=== PATIENT | male | born 1985 | race Caucasian/White ===

== ENCOUNTER 2025-04-29 11:18 | Emergency (ER) | payer OTHER, SELFPAY ==
--- OUTSIDE RECORDS SUMMARY | 2025-04-28 04:40 | XMS_ITS ---
Author Organization [facility] Address [address] [place] [address] Care Team Providers Care Bander Operator Name Role Phone Rodriguez Shepherd Primary Care Provider [phone] Russell Dodson Unavailable [phone] Allergies Allergen (clinical drug ingredient) Drug/Non Drug Allergy documented on EMR Reaction Allergy Type Onset Date Status bees (uncoded) hives Allergy Activ e wasp (uncoded) hives Allergy Activ e REASON FOR VISIT MRU Medications Medication SIG (Take, Route, Frequency, Duration) Notes Start Date End Date Status Nicotine Polacrilex 4 MG 1 lozenge as needed for nicotine cravings Mouth/Throat Up to once per hour (maximum of 15 lozenges per day); Duration: 7 days 04/28/2025 Active hydrOXYzine Pamoate 25 MG 1-2 capsules Orally every 4 hours as needed for anxiety, agitation, or inability to sleep. Do not give within 4 hours of diphenhydramine.; Duration: 30 days 04/28/2025 Active Nicotine 21 MG/24HR 1 patch to skin. Transdermal Once a day, removing at bedtime; Duration: 28 days 04/28/2025 Active Melatonin 5 MG 1 tablet at bedtime as needed Orally Once a day; Duration: 30 days 04/28/2025 Active Multi Vitamin - 1 tablet Orally Once a day; Duration: 30 days 04/28/2025 Active Lantus 100 UNIT/ML 15 units Subcutaneou s every 12 hours 15 units every12 hours Active HumaLOG KwikPen 200 UNIT/ML 10 units with every meal Subcutaneous 10 units with every meal Active Social History Tobacco Use: Social History Observation Description Date Details (start date - stop date) Current Smoker NA - NA Sex Assigned At : Social History Observation Description Sex Assigned At Male Tobacco Control (Standard) Question Answer Notes Tobacco use: Current smoker How often do you smoke cigarettes? Every day How many cigarettes a day do you smoke? 21-30 Problems Problem Type SNOMED Code ICD Code Onset Dates Problem Status W/U Status Risk Notes Problem Physical examination, complete (89423559) Adult general medical examination (Z00.00) Active confirmed Problem Overweight (130597891) Over weight (E66.3) Active confirmed Problem Type 2 diabetes mellitus (93852338) Type 2 diabetes mellitus (E11.9) Active confirmed Vital Signs Weight 299.4 lbs 04/28/2025 Height 74 in 04/28/2025 BMI 38.44 kg/m2 04/28/2025 Blood pressure systolic 128 mm Hg 04/28/20 25 Blood pressure diastolic 74 mm Hg 025 Heart Rate 80 /min 04/28/2025 Oximetry 98 % 04/28/2025 Temperature 98.0 degrees Fahrenheit 04/28/20 25 Respiratory Rate 20 /min 04/28/2025 Encounters Encounter Location Date Provider Diagnosis [place] [address] [place] [address] 04/28/2025 Russell Dodson Adult general medical examination Z00.00 ; Over weight E66.3 and Type 2 diabetes mellitus E11.9 Assessments Encounter Date Diagnosis (ICD Code) Assessment Notes Treatment Notes Treatment Clinical Notes Section Notes 04/28/2025 Adult general medical examination (ICD-10 - Z00.00) Admit to the [facility] and initiate standing/protocol orders: The following PRN medications may be self-administered by patients under the supervision of approved staff or administered by nursing staff: Ibuprofen 200mg, 2-4 tablets by mouth (with food) every 6 hours as needed for pain (unless on lithium). (NOTE: Ibuprofen and acetaminophen may be given together, but alternating is recommended for continuous pain relief. Guaifenesin 400 mg, 1 tablet by mouth every four hours as needed for cough and chest congestion (take with large glass of water). Loratadine 10 mg, 1 tablet by mouth daily as needed for allergies, watery itchy eyes, or sinus drainage. Throat Lozenges, up to 4 tablets by mouth every three to four hours as needed for sore throat. Antacid tablets, 1-2 tablets by mouth every one to two hours as needed for indigestion or heart burn. If the client prefers liquid, could use: Liquid Antacid : 1 ounce by mouth up to four times daily as needed for indigestion or heartburn Omeprazole 20mg, 1 capsule by mouth once daily for 14 days for frequent heartburn (frequent heartburn is more than 2 episodes per week). Do not exceed 14 days. Do not give to client already taking a proton-pump inhibitor: esomeprazole (Nexium), lansoprazole (Prevacid), pantoprazole (Protonix), rabeprazole (Aciphex), dexlansoprazole (Dexilant) Zofran ODT disintegrating (under the tongue) 4 mg, 1-2 tablets every 8 hours as needed for nausea/vomiting. Milk of Magnesia (MOM): 1 ounce (30 milliliters) by mouth every day as needed for constipation. OR Miralax: Stir and fully dissolve 17 grams (1 packet or 1 capful to measured line) in any 4 to 8 ounces of beverage then drink once daily for constipation. Do not use for more than 7 days. OR Docusate 100 mg, 1 capsule twice daily as needed for constipation Hydrocortisone 1% Cream, apply topically (to the skin) to the affected area up to three times daily as needed for itching or inflammation (avoid eyes and genitals). 2% Antifungal Cream, apply topically (to the skin) as directed as needed to affected areas for athlete's foot or jock itch. Triple Antibiotic Ointment, apply topically (to the skin) up to three times daily as needed for minor cuts and scrapes. Carmex or Chapstick, apply topically (to the skin) as needed for chapped lips and skin. Orajel, apply to affected areas as needed for mouth or tooth pain. Lubricating Eye Drops, instill 1-2 drops to the affected eye(s) as needed for dry/irritated eye(s). Hemorrhoid medications, apply to affected area according to directions as needed for hemorrhoid discomfort and itch. Nix (Permethrin 1%) cream 2 ounces, apply topically (to the skin) as directed as needed for head lice. Sunscreen 30 SPF, Apply to exposed skin prior to exposure to sun. The following PRN medications must be approved by nursing staff before self-administration by patients: Diphenhydramine 25 mg, 2 tablets by mouth every 4 hours as needed for allergic reaction or itchy rash. Caution: Do not use hydroxyzine within 4 hours of diphenhydramine and vice versa. Loperamide 2 mg capsules, may give two capsules by mouth for the initial dose, followed by one capsule up to 3 times a day as needed for diarrhea. Acetaminophen 500 mg, 1 - 2 tablets by mouth every six hours as needed for pain. (NOTE: Ibuprofen and acetaminophen may be given together, but alternating is recommended for continuous pain relief). Oxygen-May administer oxygen 2L/min via nasal cannula if O2 saturation is less than 92%, AND client complains of shortness of breath. Target O2 saturation is 94-98%. Caution: Remember too much oxygen can be detrimental to a client with COPD. Oxygen is a drug and should be delivered by trained staff only. Nurses may remove superficial splinters and sutures from skin lacerations. May apply gauze or bandages to any weeping wounds. Contact nursing if there is pus, a foul odor, increased pain/redness/swelli ng, or if soaking through bandages. 04/28/2025 Over weight (ICD-10 - E66.3) 04/28/2025 Type 2 diabetes mellitus (ICD-10 - E11.9) Educated patient to check BS once to twice daily. 04/28/2025 Other Continue treatment as recommended by [facility] staff. Encouraged patient to obtain routine medical care with patient's own primary care provider or establish as a patient at [facility] if no current primary care provider. Plan Of Treatment Medication Medication Name Sig Start Date Stop Date Notes Nicotine Polacrilex 4 MG 1 lozenge as needed for nicotine cravings Mouth/Throat Up to once per hour (maximum of 15 lozenges per day); Duration: 7 days 04/28/2025 hydrOXYzine Pamoate 25 MG 1-2 capsules Orally every 4 hours as needed for anxiety, agitation, or inability to sleep. Do not give within 4 hours of diphenhydramine.; Duration: 30 days 04/28/2025 Nicotine 21 MG/24HR 1 patch to skin. Transdermal Once a day, removing at bedtime; Duration: 28 days 04/28/2025 Melatonin 5 MG 1 tablet at bedtime as needed Orally Once a day; Duration: 30 days 04/28/2025 Multi Vitamin - 1 tablet Orally Once a day; Duration: 30 days 04/28/2025 Lantus 100 UNIT/ML 15 units Subcutaneou s every 12 hours 15 units every12 hours HumaLOG KwikPen 200 UNIT/ML 10 units with every meal Subcutaneous 10 units with every meal Treatment Notes Assessment Notes Adult general medical examination Admit to the [facility] and initiate standing/protocol orders: The following PRN medications may be self-administered by patients under the supervision of approved staff or administered by nursing staff: Ibuprofen 200mg, 2-4 tablets by mouth (with food) every 6 hours as needed for pain (unless on lithium). (NOTE: Ibuprofen and acetaminophen may be given together, but alternating is recommended for continuous pain relief. Guaifenesin 400 mg, 1 tablet by mouth every four hours as needed for cough and chest congestion (take with large glass of water). Loratadine 10 mg, 1 tablet by mouth daily as needed for allergies, watery itchy eyes, or sinus drainage. Throat Lozenges, up to 4 tablets by mouth every three to four hours as needed for sore throat. Antacid tablets, 1-2 tablets by mouth every one to two hours as needed for indigestion or heart burn. If the client prefers liquid, could use: Liquid Antacid : 1 ounce by mouth up to four times daily as needed for indigestion or heartburn Omeprazole 20mg, 1 capsule by mouth once daily for 14 days for frequent heartburn (frequent heartburn is more than 2 episodes per week). Do not exceed 14 days. Do not give to client already taking a proton-pump inhibitor: esomeprazole (Nexium), lansoprazole (Prevacid), pantoprazole (Protonix), rabeprazole (Aciphex), dexlansoprazole (Dexilant) Zofran ODT disintegrating (under the tongue) 4 mg, 1-2 tablets every 8 hours as needed for nausea/vomiting. Milk of Magnesia (MOM): 1 ounce (30 milliliters) by mouth every day as needed for constipation. OR Miralax: Stir and fully dissolve 17 grams (1 packet or 1 capful to measured line) in any 4 to 8 ounces of beverage then drink once daily for constipation. Do not use for more than 7 days. OR Docusate 100 mg, 1 capsule twice daily as needed for constipation Hydrocortisone 1% Cream, apply topically (to the skin) to the affected area up to three times daily as needed for itching or inflammation (avoid eyes and genitals). 2% Antifungal Cream, apply topically (to the skin) as directed as needed to affected areas for athlete's foot or jock itch. Triple Antibiotic Ointment, apply topically (to the skin) up to three times daily as needed for minor cuts and scrapes. Carmex or Chapstick, apply topically (to the skin) as needed for chapped lips and skin. Orajel, apply to affected areas as needed for mouth or tooth pain. Lubricating Eye Drops, instill 1-2 drops to the affected eye(s) as needed for dry/irritated eye(s). Hemorrhoid medications, apply to affected area according to directions as needed for hemorrhoid discomfort and itch. Nix (Permethrin 1%) cream 2 ounces, apply topically (to the skin) as directed as needed for head lice. Sunscreen 30 SPF, Apply to exposed skin prior to exposure to sun. The following PRN medications must be approved by nursing staff before self-administration by patients: Diphenhydramine 25 mg, 2 tablets by mouth every 4 hours as needed for allergic reaction or itchy rash. Caution: Do not use hydroxyzine within 4 hours of diphenhydramine and vice versa. Loperamide 2 mg capsules, may give two capsules by mouth for the initial dose, followed by one capsule up to 3 times a day as needed for diarrhea. Acetaminophen 500 mg, 1 - 2 tablets by mouth every six hours as needed for pain. (NOTE: Ibuprofen and acetaminophen may be given together, but alternating is recommended for continuous pain relief). Oxygen-May administer oxygen 2L/min via nasal cannula if O2 saturation is less than 92%, AND client complains of shortness of breath. Target O2 saturation is 94-98%. Caution: Remember too much oxygen can be detrimental to a client with COPD. Oxygen is a drug and should be delivered by trained staff only. Nurses may remove superficial splinters and sutures from skin lacerations. May apply gauze or bandages to any weeping wounds. Contact nursing if there is pus, a foul odor, increased pain/redness/swelling, or if soaking through bandages. Type 2 diabetes mellitus Educated patien t to check BS once to twice daily. Other Continue treatment as recommended by [facility] staff. Encouraged patient to obtain routine medical care with patient's own primary care provider or establish as a patient at [facility] if no current primary care provider. Pending Test Test Name Order Date CBC With Differential/Platelet* 04/28/20 CMP 14 Comprehensive Metabolic Panel* QuantiFERON-TB Gold Plus ([id number]) 2024 Next Appt Details Follow Up: prn, Reason: Provider Name:Rodriguez talley, 04/30/2025 09:00:00 AM, [address], [place], [address], Provider Name:Russell caraballo, 05/03/2025 11:00:00 AM, [address], [place], [address], Provider Name:Kristan Mireles, 1 02:40:00 PM, [address] [place] [address], [id number], Progress Notes * Byrce GARCIADOB:1985 ( 39 yo M)Acc No.[id number]:04/28/2025 UNLOCKED PROGRESS NOTE Patient: Bryce GODWIN Provider: Shawn Dodson APN :1985 A ge:39 Y S ex:Male Date:04/28/2025 Address:[place] [address] Pcp:Rodriguez Shepherd Check In:08:[address] Subjective: * Chief Complaints: * 1 . MRU. * HPI: I nterim History: Emergency room visit N o. W as hospitalized N o.? D epression Screening: PHQ-9 L ittle interest or pleasure in doing things N ot at all, F eeling down, depressed, or hopeless N ot at all, T rouble falling or staying asleep, or sleeping too much N ot at all, F eeling tired or having little energy S everal days, P oor appetite or overeating N ot at all, F eeling bad about yourself or that you are a failure, or have let yourself or your family down N ot at all, T rouble concentrating on things, such as reading the newspaper or watching television N ot at all, M oving or speaking so slowly that other people could have noticed; or the opposite, being so fidgety or restless that you have been moving around a lot more than usual N ot at all, T houghts that you would be better off or of hurting yourself in some way N ot at all, T otal Score 1 , Interpretation M inimal Depression. I ntervention D epression Screening Findings P ositive, F ollow-Up for Depression P tk is admitted to a [facility] residential unit where their mental health is monitored - unit nursing staff have access to this encounter note. S creening: [place] Suicide Severity Rating Scale (LF) D o you want to initiate with S creener form, 1 . Wish to be : Have you wished you were or wished you could go to sleep and not wake up? N o, 2 . Suicidal Thoughts: Have you actually had any thoughts of killing yourself? N o, 6 . Suicide Behavior Question: Have you ever done anything,started to do anything, or prepared to end your life? N o, I nterpretation: L ow Risk. S ummary: Presents for physical as patient is admitted to Residential Unit at [facility]. Patient presents from: homeless, originally living in [place] Concerns of: Meth use Chronic Conditions: DM, epilipsy (due to drinking ETOH) (last seizure over a year ago, his PCP at the time dced seizure meds due to them occurring while drinking) Recent Hospitalizations: [facility] last month due to elevated blood sugars PCP: denies Psych provider: denies Drug/ETOH use: ETOH (former, has not drank in over a year), Meth (1g/daily) Last time used: 2 days ago Route: smoke Previous Tx: denies Withdrawal s/s: tired Cigarette/vaping use: 1 pack/day Sexual activity: denies Denies SI/HI. P [facility] follow-up: Action Plans for Clinical Quality Measures: A dult BMI and follow-up: O ther (see notes). provider to discuss with patient, H IV Screening: D iscussed need for HIV screening. Patient declined. patient does not want screening done, T obacco Screening and Cessation: O ther (see notes). provider to educate patient. . C SSRS Interpretation and Follow Up Plan: CSSRS Interpretation and Follow Up Plan C SSRS Screen documented using SF Y es, R isk Disposition from SF L ow - No Follow Up Plan Required, F ollow Up Plan N o Follow Up Plan required at this time., T imeframe of Screening T samanta.? * ROS: B asic ROS: Denies S eizures. D enies S uicidal Thoughts. ? P sych ROS: Constitutional D enies. E yes D enies. E ars/Nose/Mouth/Throat D enies. R espiratory D enies. C ardiovascular D enies. G I?Denies. G U D enies. M usculoskeletal D enies. N eurological D enies. Integumentary D enies. H ematological/Lymphatic D enies. * Medical History: D iabetic, Epilepsy. * Hospitalization/Major Diagno stic Procedure: [facility] for high blood sugar 03/2025. * Family History: F ather: unknown. M other: alive. 1 sister(s) - healthy. . mother is in ICU septic from kidney failure. * Social History: P rimary Social History: L iving Arrangement L iving Arrangement: H omeless, I s this a supportive environment? N o. A lcohol Use A lcohol Use Frequency: N ever. I llicit Substance Usage Illicit Substance Usage: Y es, S ubstance Used: M ethamphetamine, F requency Methamphetamine is used: daily, I nterested in quitting: Y es. E mployment Status?Employment Status: U nemployed. S kevin Question Alcohol Screening H ow many times in the past year have you had (4 for women, or 5 for men) or more drinks in a day? 0 . T obacco Use: T obacco Control (Standard) T obacco use: C urrent smoker, H ow often do you smoke cigarettes? E very day, H ow many cigarettes a day do you smoke? 2 1-30. M iscellaneous: M ethod of learning P referred method of learning: R eading,Hearing. * Medications: T aking HumaLOG KwikPen 200 UNIT/ML Solution Pen-injector as directed Subcutaneous , Notes to Pharmacist: 10 units with every meal, Taking Lantus 100 UNIT/ML Solution as directed Subcutaneous , Notes to Pharmacist: 15 units every12 hours, Medication List reviewed and reconciled with the patient * Allergies: B ees: Hives, Wasp: Hives. Objective: * Vitals: I nitials: HM, Wt:299.4, Ht: 74, BMI:38.44, BP:128/74, HR:80, Oxygen sat %:98, Temp:98.0, RR:20, Pain scale:2. * Examination: G eneral Examination: GENERAL APPEARANCE: a lert, in no acute distress. HEAD: n ormocephalic, atraumatic. EYES: B OTH EYES, sclera anicteric, pupils equal, round, reactive to light and accommodation , extraocular movement intact (EOMI). EARS B OTH EARS, normal. NOSE: n yashira patent. ORAL CAVITY: m ucosa moist, missing teeth, carious teeth.? THROAT: p harynx normal. NECK/THYROID: n jefferson supple , no thyromegaly. SKIN: w arm and dry, no rashes, no suspicious lesions, bug bites noted on upper and lower extremities. HEART: r egular rate and rhythm, S1, S2 normal, no S3, S4, no murmurs, rubs, gallops. LUNGS: r espirations regular and easy, clear to auscultation bilaterally, no wheezes, rales, rhonchi, clear anteriorly and posteriorly, good air movement. ABDOMEN: b owel sounds present, soft, nontender, nondistended, no masses palpable, no organomegaly . EXTREMITIES: n o edema. PERIPHERAL PULSES: 2 + throughout. NEUROLOGIC: n onfocal, gait normal. PSYCH: a ppropriate affect. Assessment: * Assessment: 1. A dult general medical examination - Z00.00 (Primary) 2 . T ype 2 diabetes mellitus - E11.9 3 . O julian weight - E66.3 Plan: * Treatment: Value Reference Range B AC 0.000 ?LAB: Hemoglobin A1c CLIA Waived (Ordered for 04/28/2025) (Collection Date & Time - 04/28/2025 10:44 AM)* Value Reference Range H emoglobin A1c 12.6 4.0 - 6.4 % ?LAB: 14 Panel Urine Drug Screen (Ordered for 04/28/2025) (Collection Date & Time - 04/28/2025)* Value Reference Range T HC neg * C OC neg * M OP (OPI) n eg * A MP pos * M ET pos * B AR neg * B ZO neg * M DMA neg * M TD neg * O XY neg * P CP neg * B UP neg * T CA neg * F TY neg Notes: Admit to the [facility] Residential Unit and initiate standing/protocol orders: The following PRN medications may be self-administered by patients under the supervision of approved staff or administered by nursing staff: * Ibuprofen 200mg, 2-4 tablets by mouth (with food) every 6 hours as needed for pain (unless on lithium). (NOTE: Ibuprofen and acetaminophen may be given together, but alternating is recommended for continuous pain relief. * Guaifenesin 400 mg, 1 tablet by mouth every four hours as needed for cough and chest congestion (take with large glass of water). * Loratadine 10 mg, 1 tablet by mouth daily as needed for allergies, watery itchy eyes, or sinus drainage. * Throat Lozenges, up to 4 tablets by mouth every three to four hours as needed for sore throat. * Antacid tablets, 1-2 tablets by mouth every one to two hours as needed for indigestion or heart burn. If the client prefers liquid, could use: Liquid Antacid : 1 ounce by mouth up to four times dailyas needed for indigestion or heartburn * Omeprazole 20mg, 1 capsule by mouth once daily for 14 days for frequent heartburn (frequent heartburn is more than 2 episodes per week). Do not exceed 14 days. Do not give to client already taking a proton-pump inhibitor: esomeprazole (Nexium), lansoprazole (Prevacid), pantoprazole (Protonix), rabep razole (Aciphex), dexlansoprazole (Dexilant) * Zofran ODT disintegrating (under the tongue) 4 mg, 1-2 tablets every 8 hours as needed for nausea/vomiting. * Milk of Magnesia (MOM): 1 ounce (30 milliliters) by mouth every day as needed for constipation.ORMiralax: Stir and fully dissolve 17 grams (1 packet or 1 capful to measured line) in any 4 to 8 ounces of beverage then drink once daily for constipation. Do not use for more than 7 days.ORDocusate 100 mg, 1 capsule twice daily as needed for constipation * Hydrocortisone 1% Cream, apply topically (to the skin) to the affected area up to three times dailyas needed for itching or inflammation (avoid eyes and genitals). * 2% Antifungal Cream, apply topically (to the skin) as directed as needed to affected areas for athlete's foot or jock itch. * Triple Antibiotic Ointment, apply topically (to the skin) up to three times daily as needed for minor cuts and scrapes. * Carmex or Chapstick, apply topically (to the skin) as needed for chapped lips and skin. * Orajel, apply to affected areas as needed for mouth or tooth pain. * Lubricating Eye Drops, instill 1-2 drops to the affected eye(s) as needed for dry/irritated eye(s). * Hemorrhoid medications, apply to affected area according to directions as needed for hemorrhoid discomfort and itch. * Nix (Permethrin 1%) cream 2 ounces, apply topically (to the skin) as directed as needed for head lice. * Sunscreen 30 SPF, Apply to exposed skin prior to exposure to sun. The following PRN medications must be approved by nursing staff before self- administration by patients: * Diphenhydramine 25 mg, 2 tablets by mouth every 4 hours as needed for allergic reaction or itchy rash.Caution: Do not use hydroxyzine within 4 hours of diphenhydramine and vice versa. * Loperamide 2 mg capsules, may give two capsules by mouth for the initial dose, followed by one capsule up to 3 times a day as needed for diarrhea. * Acetaminophen 500 mg, 1 - 2 tablets by mouth every six hours as needed for pain. (NOTE: Ibuprofen and acetaminophen may be given together, but alternating is recommended for continuous pain relief). * Oxygen-May administer oxygen 2L/min via nasal cannula if O2 saturation is less than 92%, AND clientcomplains of shortness of breath. Target O2 saturation is 94-98%.Caution: Remember too much oxygen can be detrimental to a client with COPD. Oxygen is a drug and should be delivered by trained staff only. Nurses may remove superficial splinters and sutures from skin lacerations. May apply gauze or bandages to any weeping wounds. Contact nursing if there is pus, a foul odor, increased pain/redness/swelling, or if soaking through bandages. ??2.?Type 2 diabetes mellitus? Continue HumaLOG KwikPen Solution Pen-injector, 200 UNIT/ML, 10 units with every meal, Subcutaneous, Notes to Pharmacist: 10 units with every meal;?Continue Lantus Solution, 100 UNIT/ML, 15 units, Subcutaneous, every 12 hours, Notes to Pharmacist: 15 units every12 hours.?? Notes: Educated patient to check BS once to twice daily.??3.?Others? Notes:Continue treatment as recommended by [facility] staff.Encouraged patient to obtain routine medical care with patient's own primary care provider or establish as a patient at [facility] if no current primary care provider.?? * Recommended Wellness and Pre vention Guidelines: * S tat A eliel L ast Done N ext Due A ction Taken N ONCOMPLIANT A lcohol use screening - 1 - - N ONCOMPLIANT A llergy List Verification - 1 - - N ONCOMPLIANT B michelle Mass Index - 1 - - N ONCOMPLIANT C holesterol screen (genl pop) - 1 - - N ONCOMPLIANT H IV screening - 1 - - N ONCOMPLIANT S moking status - 1 - - * Procedure Codes: 3 008F BODY MASS INDEX DOCD, 54548 TB TEST, CELL IMMUN MEASURE * Preventive Medicine: Counseling: S MOKING: P atient counselled on the dangers of tobacco use and urged to quit. 1 .. C are goal follow-up plan: B AR management provided Y es,?Above Normal BMI Follow-up L titoyle education regarding diet. * Follow Up: p rn * * Electronic signature of Villa Dodson on 04/29/2025 at 12:03 PM CDT Sign off status: Pending * Provider: Shawn Dodson, PHARMACY CUSTOMER CARE SPECIALIST Date: 1 Generated for Darren evans/Jaspreet/Sonja on: 1 12:03 PM CDT History and Physical Notes * HPI (History of Present Illness) Category Sub-Category Detail Notes Category Not es Interim History Was hospitalized No Emergency room visit No Depression Screening PHQ-9 Little inte rest or pleasure in doing things: Not at all Feeling down, depressed, or hopeless: No t at all Trouble falling or staying asleep, or sl eeping too much: Not at all Feeling tired or having little energy: S everal days Poor appetite or overeating: Not at all Feeling bad about yourself o r that you are a failure, or have let yourself or your family down: Not at all Trouble concentrating on thi ngs, such as reading the newspaper or watching television: Not at all Moving or speaking so slowly that other people could have noticed; or the opposite, being so fidgety or restless that you have been moving around a lot more than usual: Not at all Thoughts that you would be b anali off or of hurting yourself in some way: Not at all Total Score: 1 Interpretation: Minimal Depression Intervention Depression Screening Findings: P ositive Follow-Up for Depression: Troy verdugo is admitted to a [place] residential unit where their mental health is monitored - unit nursing staff have access to this encounter note Summary Presents for physical as patient is admitted to Residential Unit at [place]. 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 Wish to be : Have you wished you were or wished you could go to sleep and not wake up?: No 2. Suicidal Thoughts: Have you actually had any thoughts of killing yourself?: No 6. Suicide Behavior Question: Have you ever done anything,started to do anything, or prepared to end your life?: No Interpretation:: Low Risk Preventative Health and Wellness follow-up Action Plans for Clinical Quality Measures: Adult BMI and follow-up:: Other (see notes). provider to discuss with patient . HIV Screening:: Discussed ne ed for HIV screening. Patient declined. patient does not want screening done Tobacco Screening and Cessat ion:: Other (see notes). provider to educate patient CSSRS Interpretation and Follow Up Plan CSSRS Interpretation and Follow Up Plan CSSRS Screen documented using SF: Yes Risk Disposition from SF: Low - No Follo w Up Plan Required Follow Up Plan: No Follow Up Plan requir ed at this time. Timeframe of Screening: Today Examination Category Sub-Category Detail Notes Category Not es General Examination GENERAL APPEARANCE: alert, in no a cute distress HEAD: normocephalic, atrau matic EYES: BOTH EYES, sclera an icteric, pupils equal, round, reactive to light and accommodation , extraocular movement intact (EOMI) EARS BOTH EARS, normal NOSE: nares patent THROAT: pharynx normal NECK/THYROID: neck supple , no thy romegaly HEART: regular rate and rhy thm, S1, S2 normal, no S3, S4, no murmurs, rubs, gallops LUNGS: respirations regular and easy, clear to auscultation bilaterally, no wheezes, rales, rhonchi, clear anteriorly and posteriorly, good air movement ABDOMEN: bowel sounds present , soft, nontender, nondistended, no masses palpable, no organomegaly NEUROLOGIC: nonfocal, gait catracho l SKIN: warm and dry, no juan m hes, no suspicious lesions, bug bites noted on upper and lower extremities EXTREMITIES: no edema PERIPHERAL PULSES: 2+ throughout PSYCH: appropriate affect ORAL CAVITY: mucosa moist, missin g teeth, carious teeth
--- OUTSIDE RECORDS SUMMARY | 2025-04-28 05:40 | XMS_ITS ---
Author Organization [facility] Address [address] [place] [address] Care Team Providers Care Sugarcane Planter Name Role Phone Rodriguez Shepherd Primary Care Provider [phone] CaleSiomara anderson Unavailable [phone] REASON FOR VISIT MRU aT Social History Tobacco Use: Social History Observation Description Date Details (start date - stop date) Current Smoker NA - NA Sex Assigned At : Social History Observation Description Sex Assigned At Male PRAPARE Question Answer Notes Date Completed/Updated: 04/28/2025 What is your current housing situation? I do not have housing (staying with others, in a hotel, in a half-way, living outside on the street, on a [...] phone, visiting friends or family, going to voodoo or club meetings) More than 5 times a week How stressed are you? Stress is when someone feels tense, nervous, anxious, or can\t sleep at night because their mind is troubled A little bit In the past year have you sp ent more than 2 nights in a row in a group home, senior care, assisted center, or juvenile correctional facility? No Are [...] Problem Status W/U Status Risk Notes Problem Substance abuse (9870092519) Substance abuse (F19.10) Active confirmed Problem Mental health problem (319461976) Mental health problem (F48.9) Active confirmed Encounters Encounter Location Date Provider Diagnosis [facility] [address] [place] [address] 04/28/2025 Simoara Madsen Over weight E66.3 ; Substance abuse [...] Reason: Provider Name:Rodriguez talley, 04/30/2025 09:00:00 AM, [address], [place], [address], Provider Name:Russellmayank caraballo, 05/03/2025 11:00:00 AM, [address], [place], [address], Provider Name:Kristan Mireles, 1 02:40:00 PM, [address], [address], Progress Notes * Bryce GARCIADOB:1985 ( 39 yo M)Acc No.[id number]:04/28/2025 UNLOCKED PROGRESS NOTE Patient: Bryce GODWIN Provider: Eric Madsen :1985 A ge:39 Y S ex:Male Date:04/28/2025 Address:[facility] Pcp:Rodriguez Shepherd Subjective: * Chief Complaints: * [...] es, W as It Completed Today Using SmartDescargas Online? Y es.? a TBC For Substance Use Services: Who Is Your Primary Care Provider? D o You Have A Primary Care Provider? N o, D ate of last physical exam -2024. D o You Have A Psychiatric Provider? [...] Depression Eric frey is admitted to a [facility] unit where their mental health is monitored - unit nursing staff have access to this encounter note. S creening: [place] Suicide Severity Rating Scale (LF) D o [...] Risk. * Social History: S ocial Determinants: P TAMRA Ley ate Completed/Updated: 1 , W hat is your current housing situation? I do not have housing (staying with others, in a hotel, in a half-way, living outside on the street, on a [...] phone, visiting friends or family, going to voodoo or club meetings) M ore than 5 times a week, H ow stressed are you? Stress is when someone feels tense, nervous, anxious, or can\t sleep at night because their mind is troubled A little bit, I n the past year have you spent more than 2 nights in a row in a group home, senior care, assisted center, or juvenile correctional facility? N o, A re you a refugee? I choose not to answer this question, W hat country are you from? I choose not to answer this question, D o you feel physically and emotionally safe where you currently live? N o, I n the past year, have you been afraid of your partner or ex-partner? N o, P TAMRA Score: 1 3, E nabling Services Provided? [...] CHS08 [facility], CHS12 Housing Assistance * Follow Up: p rn * Care Plan Details* * Electronic signature of Philip Madsen on 04/29/2025 at 12:03 PM CDT Sign off status: Pending * Provider: Eric Madsen Date: Generated for Darren evans/Jaspreet/Sonja on: 12:03 PM CDT History and Physical Notes [...] Depression: Troy verdugo is admitted to a [facility] unit where their mental health is monitored - unit nursing staff have access to this encounter note Psychiatric Assessment - Current Symptoms Primary concern today Admitting today for [facility] 28 day [facility] Overview of Mental [...] reported he is using meth daily Screening [place] Suicide Sev erity Rating Scale (LF) Do [...]
[2025-04-29 11:30] VITALS: BP 122/72; PULSE 98; RESP 16; TEMP 36.6; O2SAT 97
[2025-04-29 11:45] VITALS: RESP 16; O2SAT 97
[2025-04-29 11:50] LABS: Hematocrit 41.4 % (42.0-52.0); Hemoglobin 13.8 g/dL (14.0-18.0); Immature Granulocyte Percent A 0.5 % (0-0.5); Lymphocytes Absolute Auto 1.62 K/mm3 (0.9-3.2); Mean Corpuscular HGB Conc 33.3 g/dl (32-36); Mean Corpuscular Hemoglobin 28.6 pg (26-34); Mean Corpuscular Volume 85.9 fl (80-100); Nucleated Red Blood Cells Absolute Auto 0.000 K/mm3 (0.0-0.012); Nucleated Red Blood Cells Perc 0.0 % (0.0-0.2); Platelet Count Result 216 k/mm3 (150-375); Red Blood Count 4.82 M/mm3 (4.6-6.20); White Blood Count 7.4 K/mm3 (4.5-10.0)
--- OUTSIDE RECORDS SUMMARY | 2025-04-29 12:03 | XMS_ITS | Patient Health Record ---
Author Organization [facility] Address [address] [place] [address] Care Team Providers Care Communication Skills Instructor Name Role Phone EtienneRodriguez plaza Primary Care Provider [phone] Russell Dodson Unavailable [phone] Siomara Madsen Unavailable [phone] Allergies Allergen (clinical drug ingredient) Drug/Non Drug Allergy documented on EMR Reaction Allergy Type Onset Date Status bees (uncoded) hives Allergy Activ e wasp (uncoded) hives Allergy Activ e Results Component Value Reference Range Notes Breathalyzer Reviewed date:04/29/2025 07:57:42 AM Interpretation: Performing Lab: Notes/Report: NANCY 0.000 Hemoglobin A1c CLIA Waived Reviewed date:04/28/2025 10:45:06 AM Interpretation: Performing Lab: Notes/Report: Hemoglobin A1c 12.6 4.0 - 6.4 % 14 Panel Urine Drug Screen Reviewed date:04/29/2025 07:57:42 AM Interpretation: Performing Lab: Notes/Report: THC neg JUANPABLO neg MOP (OPI) n eg AMP pos MET pos BAR neg BZO neg MDMA neg MTD neg OXY neg PCP neg BUP neg TCA neg FTY neg Reason For Referral No Information Medications Medication SIG (Take, Route, Frequency, Duration) Notes Start Date End Date Status Nicotine Polacrilex 4 MG 1 lozenge as needed for nicotine cravings Mouth/Throat Up to once per hour (maximum of 15 lozenges per day); Duration: 7 days 04/28/2025 Active Lantus 100 UNIT/ML 15 units Subcutaneou s every 12 hours 15 units every12 hours Active HumaLOG KwikPen 200 UNIT/ML 10 units with every meal Subcutaneous 10 units with every meal Active hydrOXYzine Pamoate 25 MG 1-2 capsules [...] a day; Duration: 30 days 04/28/2025 Active Social History Tobacco Use: Social History Observation Description Date Details (start date - stop date) Current Smoker NA - NA Sex Assigned At : Social History Observation Description Sex Assigned At Male PRAPARE Question Answer Notes Date Completed/Updated: 04/28/2025 What is your current housing situation? I do not have housing (staying with others, in a hotel, in a chcf, living outside on the street, on a [...] phone, visiting friends or family, going to yarsanism or club meetings) More than 5 times a week How stressed are you? Stress is when someone feels tense, nervous, anxious, or can\t sleep at night because their mind is troubled A little bit In the past year have you sp ent more than 2 nights in a row in a residential, senior care, senior living center, or juvenile correctional facility? No Are [...] W/U Status Risk Notes Problem Substance abuse (7321954712) Substance abuse (F19.10) Active confirmed Problem Type 2 diabetes mellitus (61143223) Type 2 diabetes mellitus (E11.9) Active confirmed Problem Overweight (880025609) Over weight (E66.3) Active confirmed Problem Mental health problem (011346898) Mental health problem (F48.9) Active confirmed Problem Physical examination, complete (09453720) Adult general medical examination (Z00.00) Active confirmed Vital Signs Heart Rate 80 /min 04/28/2025 Temperature 98.0 degrees Fahrenheit 04/28/2025 Respiratory Rate 20 /min 04/28/2025 Blood pressure diastolic 74 mm Hg 04/28/2025 Oximetry 98 % 04/28/2025 Height 74 in 04/28/2025 Blood pressure systolic 128 mm Hg 04/28/2025 Weight 299.4 lbs 04/28/2025 BMI 38.44 kg/m2 04/28/2025 Encounters Encounter Location Date Provider Diagnosis [facility] [place] [address] 04/28/2025 Russell Dodson Adult general medical examination Z00.00 ; Over weight E66.3 and Type 2 diabetes mellitus E11.9 [facility] [address] [place] [address] 04/28/2025 Siomara Madsen Over weight E66.3 ; Substance abuse F19.10 and Mental health problem F48.9 Assessments Encounter Date Diagnosis (ICD Code) Assessment Notes Treatment Notes Treatment Clinical Notes Section Notes 04/28/2025 Adult general medical examination (ICD-10 - Z00.00) Admit to the [facility] Residential [facility] and initiate standing/protocol orders: The [...] 04/28/2025 Substance abuse (ICD-10 - F19.10) 04/28/2025 Type 2 diabetes mellitus (ICD-10 - E11.9) Educated patient to check BS once to twice daily. 04/28/2025 Over weight (ICD-10 - E66.3) 04/28/2025 Mental health problem (ICD-10 - F48.9) 04/28/2025 Other Continue treatment as recommended by [facility] staff. Encouraged patient to obtain routine medical care with patient's own primary care provider or establish as a patient at [facility] if no current primary care provider. 04/28/2025 Other Clinician met w ith client to assess needs for residential services. Clinician gathered information regarding historical presentation of mental health and substance use symptoms including withdrawal, HIV Risk assessment, psychiatric hospitalization history and presenting concern. Clinician conducted PHQ9 and CSSRS assessments as well as social drivers of health screening for the purposes of identifying additional service needs. Plan Of Treatment Pending Test Test Name Order Date CBC With Differential/Platelet* 04/28/20 CMP 14 Comprehensive Metabolic Panel* QuantiFERON-TB Gold Plus ([id number]) 2024 Next Appt Details Provider Name:Rodriguez talley, 04/30/2025 09:00:00 AM, [address], [place], [address], Provider Name:Russell caraballo, 05/03/2025 11:00:00 AM, [address], [place], [address], Provider Name:Kristan Mireles, 1 02:40:00 PM, [address] [place] [address], [phone], Insurance Providers Payer Name Payer Address Payer Phone Subscriber Number Group Number Insured Name Patient Relationship to Insured Coverage Start Date Coverage End Date [facility] Attn Claims Department [address] [place] [address] [id number] Bryce Mayen Self - patient is the insured Medical (General) History Medical History History ICD Code diabetic epilepsy Hospitalization History Reason Date(Month/Year) [place] for high blood sugar 03/2025
[2025-04-29 12:09] VITALS: BP 113/75; PULSE 76; RESP 20; O2SAT 97
[2025-04-29 12:10] LABS: Alanine Aminotransferase 35 U/L (6-50); Albumin Level 3.7 g/dL (3.5-5.1); Alkaline Phosphatase 174 U/L (38-126); Anion Gap 7 mmol/L (4-12); Aspartate Amino Transferase 25 U/L (17-59); Bilirubin,Total 0.2 mg/dL (0.2-1.3); Blood Urea Nitrogen 14 mg/dL (9-20); Calcium 8.5 mg/dL (8.4-10.2); Carbon Dioxide 27 mmol/L (22-30); Chloride 99 mmol/L (98-107); Estimated CRCL calculation 177 ml/min; Estimated Glomerular Filt Rate > 60; Glucose 454 mg/dL (65-110); Magnesium 1.6 mg/dL (1.6-2.3); Potassium 4.2 mmol/L (3.4-5.0); Sodium 133 mmol/L (137-145); Total Protein 6.7 g/dL (6.3-8.2)
[2025-04-29 12:16] LABS: Add Urine Microscopic? NO; Appearance Urine Clear (Clear); Glucose Urine UA 3+ mg/dL (Negative); Leukocyte Esterase Ur Negative LEU/UL (Negative); Nitrate Urine Negative (Negative); Specific Grav Ur 1.035 (1.001-1.035)
[2025-04-29] MEDS: LACTATED RINGERS 2,000 ML 999 ML IV CONT (13:01)
--- NOTE | 2025-04-29 13:11 | ED_ITS ---
HPI - General Adult General Chief complaint: Recheck/Abnormal Lab/Rx Stated complaint: high blood glucose Time Seen by Provider: 04/29/25 11:37 History of Present Illness HPI narrative: This is a 39-year-old homeless male type 1 diabetes presenting for elevated blood sugars. He is currently at [facility] facility. He was sent because his blood sugars were over 400. Patient says that he has been taking his insulin, however he is homeless and he cannot refrigerated he does not think it is working. He is thirsty. He denies fevers chills chest pain difficulty breathing abdominal pain nausea vomiting diarrhea dysuria. Patient needs a new prescription of his insulin to go back to [facility]. Related Data Allergies Allergy/AdvReac Type Severity Reaction Status Date / Time venom-honey bee Allergy Unknown Unknown Verified 04/29/25 11:47 venom-wasp Allergy Unknown Unknown Verified 04/29/25 11:47 Exam 2 Narrative: APPEARANCE: No apparent distress. Well-appearing Head: atraumatic. EYES: EOMI, NOSE: Atraumatic NECK: Trachea midline RESPIRATORY: No increased rate of breathing CTAB CARDIOVASCULAR: RRR, ABDOMINAL: Non-distended soft nontender MUSCULOSKELETAl: No obvious deformities NEURO: Alert. Moving 4/4 extremities SKIN:: Warm, dry. Normal color PSYCHIATRIC: Normal affect Course Vital Signs Vital signs: Vital Signs Temperature 97.8 F 04/29/25 11:30 Pulse Rate 98 04/29/25 11:30 Respiratory Rate 16 04/29/25 11:30 Blood Pressure 122/72 04/29/25 11:30 Pulse Oximetry 97 04/29/25 11:30 Oxygen Delivery Room Air 04/29/25 11:30 Temperature 97.8 F 04/29/25 11:30 Pulse Rate 76 04/29/25 12:09 Respiratory Rate 20 04/29/25 12:09 Blood Pressure 113/75 04/29/25 12:09 Pulse Oximetry 97 04/29/25 12:09 Oxygen Delivery Room Air 04/29/25 11:30 Medical Decision Making [facility] Narrative Medical decision making narrative: -Course: 39-year-old type 1 diabetic who is homeless presenting for elevated glucose. Laboratory studies reviewed. No evidence of HHS/DKA. Patient has hyperglycemia of diabetes. He will be discharged with prescriptions for his insulin. He was also given 2 L of lactated Ringer's and a dose of his long- acting insulin. Patient be discharged back to [facility]. Given return precautions. -DDX includes but is not limited to: Hypoglycemia diabetes, DKA, HHS, medication noncompliance, homeless Vital Signs Vital Signs: Vital Signs Temperature 97.8 F 04/29/25 11:30 Pulse Rate 98 04/29/25 11:30 Respiratory Rate 16 04/29/25 11:30 Blood Pressure 122/72 04/29/25 11:30 Pulse Oximetry 97 04/29/25 11:30 Oxygen Delivery Room Air 04/29/25 11:30 Temperature 97.8 F 04/29/25 11:30 Pulse Rate 76 04/29/25 12:09 Respiratory Rate 20 04/29/25 12:09 Blood Pressure 113/75 04/29/25 12:09 Pulse Oximetry 97 04/29/25 12:09 Oxygen Delivery Room Air 04/29/25 11:30 Lab Data 04/29/25 11:41 04/29/25 11:41 Labs: Lab Results 04/29/25 04/29/25 04/29/25 Range/Units 11:38 11:41 12:07 WBC 7.4 (4.5-10.0) K/mm3 RBC 4.82 (4.6-6.20) M/mm3 Hgb 13.8 L (14.0-18.0) g/dL Hct 41.4 L (42.0-52.0) % MCV 85.9 (80-100) fl MCH 28.6 (26-34) pg MCHC 33.3 (32-36) g/dl RDW 12.3 (11.5-14.5) % Plt Count 216 (150-375) k/mm3 MPV 11.0 H (7.4-10.4) fl Immature Gran % (Auto) 0.5 (0-0.5) % Neut % (Auto) 65.7 (45.5-73.1) % Lymph % (Auto) 21.8 (18.3-44.2) % Bertie % (Auto) 8.2 (2.6-8.5) % Eos % (Auto) 3.1 (0-4.4) % Baso % (Auto) 0.7 (0.2-1.2) % Lymph # (Auto) 1.62 (0.9-3.2) K/mm3 Bertie # (Auto) 0.6 (0.1-0.6) K/mm3 Eos # (Auto) 0.2 (0-0.3) K/mm3 Baso # (Auto) 0.1 (0.0-0.1) K/mm3 Abs Immat Gran (auto) 0.04 H (0.00-0.031) K/mm3 Absolute Neuts (auto) 4.9 (1.3-6.7) K/mm3 Absolute Nucleated RBC 0.000 (0.0-0.012) K/mm3 Nucleated RBC % 0.0 (0.0-0.2) % Sodium 133 L (137-145) mmol/L Potassium 4.2 (3.4-5.0) mmol/L Chloride 99 (98-107) mmol/L Carbon Dioxide 27 (22-30) mmol/L Anion Gap 7 (4-12) mmol/L BUN 14 (9-20) mg/dL Creatinine 0.70 (0.7-1.3) mg/dL Estim Creat Clear Calc 177 ml/min Estimated GFR > 60 (59 - ) Glucose 454 H (65-110) mg/dL POC Capillary Glucose 420 H (65-105) mg/dl Calcium 8.5 (8.4-10.2) mg/dL Phosphorus 2.9 (2.5-4.5) mg/dL Magnesium 1.6 (1.6-2.3) mg/dL Total Bilirubin 0.2 (0.2-1.3) mg/dL AST 25 (17-59) U/L ALT 35 (6-50) U/L Alkaline Phosphatase 174 H (38-126) U/L Total Protein 6.7 (6.3-8.2) g/dL Albumin 3.7 (3.5-5.1) g/dL Urine Color Yellow (Yellow) Urine Appearance Clear (Clear) Urine pH 6.0 (5.0-9.0) Ur Specific [place] 1.035 (1.001-1.035) Urine Protein Negative (Negative) mg/dL Urine Glucose (UA) 3+ H (Negative) mg/dL Urine Ketones Negative (Negative) mg/dL Ur Blood (Man) Negative (Negative) Urine Nitrate Negative (Negative) Urine Bilirubin Negative (Negative) Urine Urobilinogen 0.2 (<2.0) mg/dL Leukocyte Esterase Rfl Negative (Negative) RUT/UL Discharge Plan Discharge Clinical Impression: Non compliance w medication regimen, Type I diabetes mellitus, Homeless Patient Disposition: Home Condition: Stable Instructions: Antibiotic Form, What is Insulin (ED) Additional Instructions: You were seen in the emergency department for elevated blood sugars. You are not in DKA. Please use the insulin as instructed. If you develop elevated blood sugars, abdominal pain or nausea vomiting return to the ED for re-evaluation. Patient Language: Maori Prescriptions: New insulin glargine [Lantus Solostar U-100 Insulin] 100 unit/mL (3 mL) insulin pen 15 unit subcut BID Qty: 15 0RF insulin lispro [Humalog KwikPen Insulin] 100 unit/mL insulin pen 10 unit subcut TID Qty: 15 0RF Follow-up/Referrals: PHYSICIAN,COMPONENT ASSEMBLER SUPERVISOR [Primary Care Provider, Internal Medicine]
[2025-04-29] MEDS: INSULIN GLARGINE (*BKC) 100 UNITS/ML 15 UNITS SUB-Q (13:19)
[2025-04-29 14:30] VITALS: BP 131/86; PULSE 86; RESP 18; O2SAT 100
== END 2025-04-29 14:30 | disposition home or self-care (01) ==
PROVIDERS: Emergency Provider Emergency Medicine
DX: E10.65 Type 1 diabetes mellitus with hyperglycemia (principal); T38.3X6A Underdosing of insulin and oral hypoglycemic [antidiabetic] drugs, initial encounter; Z91.138 Patient's unintentional underdosing of medication regimen for other reason; Z59.01 Sheltered homelessness; Z79.4 Long term (current) use of insulin
CPT/HCPCS: 36415; 80053; 81003; 82948; 83735; 84100; 85025; 96360; 96361; 99283; J1815; J7120

== ENCOUNTER 2025-04-30 14:09 | Emergency (ER) | payer OTHER, SELFPAY ==
--- OUTSIDE RECORDS SUMMARY | 2025-04-28 05:40 | XMS_ITS ---
Author Organization [facility] Address [address] [place] [address] Care Team Providers Care Tape Recorder Repairer Name Role Phone Rodriguez Shepherd Primary Care Provider [phone] CaleSiomara anderson Unavailable [phone] REASON FOR VISIT MRU aT Social History Tobacco Use: Social History Observation Description Date Details (start date - stop date) Current Smoker NA - NA Sex Assigned At : Social History Observation Description Sex Assigned At Male PRAPARE Question Answer Notes Date Completed/Updated: 04/28/2025 What is your current housing situation? I do not have housing (staying with others, in a hotel, in a care home, living outside on the street, on a beach, or in a park) Are you worried about losing your housing? Yes What is the highest level of school that you have finished? High school diploma or GED What is your current work situation? Unemployed and seeking work In the past year, have you o r any family members you live with been unable to get any of the following when it was really needed? Check all that apply Food,Clothing,Utilities Has lack of transportation k ept you from medical appointments, meetings, work or from getting things needed for daily living? Yes, it has kept me from medical appointments or from getting my medications,Yes, it has kept me from non-medical meetings, appointments, work, or getting things needed for daily living How often do you see or talk to people that you care about and feel close to? (For example: talking to friends on the phone, visiting friends or family, going to yazidi or club meetings) More than 5 times a week How stressed are you? Stress is when someone feels tense, nervous, anxious, or can\t sleep at night because their mind is troubled A little bit In the past year have you sp ent more than 2 nights in a row in a assisted, correction, [place] health [place] center, or juvenile correctional facility? No Are you a refugee? I choose not to answer this q uestion What country are you from? I choose not to answe r this question Do you feel physically and e motionally safe where you currently live? No In the past year, have you b een afraid of your partner or ex-partner? No PRAPARE Score: 13 Enabling Services Provided? Yes Please specify Case Management Assessment First Visit Tobacco Control (Standard) Question Answer Notes Tobacco use: Current smoker How often do you smoke cigarettes? Every day How many cigarettes a day do you smoke? 21-30 Problems Problem Type SNOMED Code ICD Code Onset Dates Problem Status W/U Status Risk Notes Problem Mental health problem (862050623) Mental health problem (F48.9) Active confirmed Encounters Encounter Location Date Provider Diagnosis [facility] [address] [place] [address] 04/28/2025 Siomara Madsen Over weight E66.3 ; Substance abuse F19.10 and Mental health problem F48.9 Assessments Encounter Date Diagnosis (ICD Code) Assessment Notes Treatment Notes Treatment Clinical Notes Section Notes 04/28/2025 Over weight (ICD-10 - E66.3) 04/28/2025 Substance abuse (ICD-10 - F19.10) 04/28/2025 Mental health problem (ICD-10 - F48.9) 04/28/2025 Other Clinician met w ith client to assess needs for residential services. Clinician gathered information regarding historical presentation of mental health and substance use symptoms including withdrawal, HIV Risk assessment, psychiatric hospitalization history and presenting concern. Clinician conducted PHQ9 and CSSRS assessments as well as social drivers of health screening for the purposes of identifying additional service needs. Plan Of Treatment Treatment Notes Assessment Notes Other Clinician met with bob daniels to assess needs for residential services. Clinician gathered information regarding historical presentation of mental health and substance use symptoms including withdrawal, HIV Risk assessment, psychiatric hospitalization history and presenting concern. Clinician conducted PHQ9 and CSSRS assessments as well as social drivers of health screening for the purposes of identifying additional service needs. Next Appt Details Follow Up: prn, Reason: Provider Name:Russell Tony Indu caraballo, 05/03/2025 11:00:00 AM, [address], [place], [address], Provider Name:Kristan Mireles, 1 02:40:00 PM, [address] , [place], [address], Progress Notes * Bryce GARCIADOB:1985 ( 39 yo M)Acc No.[id number]:04/28/2025 UNLOCKED PROGRESS NOTE Patient: Bryce GODWIN Provider: Eric Madsen :1985 A ge:39 Y S ex:Male Date:04/28/2025 Address:[facility] Pcp:Rodriguez Shepherd Subjective: * Chief Complaints: * HPI: P sychiatric Assessment - Current Symptoms: Primary concern today A dmitting today for [facility]. O verview of Mental Health Symptoms C frances reported he has no mental health concerns at this time. H istory of Psychiatric Hospitalizations N one reported at this time. H istory of Psychiatric and Behavioral Health Treatment C frances reported he took medication for ADHD at one point in time but no longer takes that medication. S ubstance Use: Current Use Patterns C frances reported he is using meth daily. P rimary Substance Used M eth. H istory of substance use C frances reported he has been using meth for over 20 years on and off but around last year he has been using it daily. H x of Withdrawal C frances reported he experiences lethargy as a symptom of withdrawal. A ssessment of Social Determinants of Health::: Has A PRAPARE Been Completed In The Past Year? H as a PRAPARE Been Completed In The Past Year? Y es, W as It Completed Today Using SmartForm? Y es.? a TBC For Substance Use Services: Who Is Your Primary Care Provider? D o You Have A Primary Care Provider? N o, D ate of last physical exam . D o You Have A Psychiatric Provider? D o You Have A Psychiatric Provider? N o. D o You Have Any Other Professional Supports? D o You Have Any Other Professional Supports N o. C onsent Forms Completed?Consent Forms N one Needed at this time. D epression Screening: PHQ-9 L ittle interest [...] Findings P ositive, F ollow-Up for Depression Eric frey is admitted to a [facility] unit where their mental health is monitored - unit nursing staff have access to this encounter note. S creening: [place] Suicide Severity Rating Scale (LF) D o [...] N o, I nterpretation: L ow Risk. * Social History: S ocial Determinants: Eric Ley ate Completed/Updated: , W hat is your current housing situation? I do not have housing (staying with others, in a hotel, in a care home, living outside on the street, on a beach, or in a park), A re you worried about losing your housing? Y es, W hat is the highest level of school that you have finished? H igh school diploma or GED, W hat is your current work situation? U nemployed and seeking work, I n the past year, have you or any family members you live with been unable to get any of the following when it was really needed? Check all that apply F ood,Clothing,Utilities, H as lack of transportation kept you from medical appointments, meetings, work or from getting things needed for daily living? Y es, it has kept me from medical appointments or from getting my medications,Yes, it has kept me from non-medical meetings, appointments, work, or getting things needed for daily living, H ow often do you see or talk to people that you care about and feel close to? (For example: talking to friends on the phone, visiting friends or family, going to yazidi or club meetings) M ore than 5 times a week, H ow stressed are you? Stress is when someone feels tense, nervous, anxious, or can\t sleep at night because their mind is troubled A little bit, I n the past year have you spent more than 2 nights in a row in a assisted, correction, [place], or juvenile correctional facility? N o, A re you a refugee? I choose not to answer this question, W hat country are you from? I choose not to answer this question, D o you feel physically and emotionally safe where you currently live? N o, I n the past year, have you been afraid of your partner or ex-partner? N o, P RAPARE Score: 1 3, E nabling Services Provided? Y es, P sanjeev specify C ase Management Assessment First Visit. T obacco Use: T obacco Control (Standard) T obacco use: C urrent smoker, H ow often do you smoke cigarettes? E very day, H ow many cigarettes a day do you smoke? 2 1-30. Objective: * Examination: M ental Status Exam: ATTENTION AND CONCENTRATION N o deficits. APPEARANCE D isheveled. ATTITUDE AND BEHAVIOR C ooperative. EYE CONTACT G ood. AFFECT C ongruent with reported mood. MOOD E uthymic. INSIGHT P oor. JUDGMENT F air. Assessment: * Assessment: 1. O julian weight - E66.3 2 . S ubstance abuse - F19.10 3 .?Mental health problem - F48.9 Plan: * Treatment: * Procedure Codes: 9 0791 PSYCH DIAGNOSTIC EVALUATION, Modifiers: AJ , 3008F BODY MASS INDEX DOCD, CHS08 [facility], [facility]12 Housing Assistance * Follow Up: p rn * Care Plan Details* * Electronic signature of Philip Madsen on 04/30/2025 at 02:11 PM CDT Sign off status: Pending * Provider: Eric Madsen Date: Generated for Darren evans/Jaspreet/Sonja on: 02:11 PM CDT History and Physical Notes * HPI (History of Present Illness) Category Sub-Category Detail Notes Category Not es Depression Screening PHQ-9 Little inte rest or [...] Depression: Troy verdugo is admitted to a [facility] unit where their mental health is monitored - unit nursing staff have access to this encounter note Psychiatric Assessment - Current Symptoms Primary concern today Admitting today for [facility] 28 day program Overview of Mental Health Symptoms Clien t reported he has no mental health concerns at this time History of Psychiatric Hospitalizations None reported at this time History of Psychiatric and B ehavioral Health Treatment Client reported he took medication for A DHD at one point in time but no longer takes that medication Substance Use History of substance use Client reported he has been using meth for over 20 years on and off but around last year he has been using it daily Hx of Withdrawal Client reported he e xperiences lethargy as a symptom of withdrawal Primary Substance Used Meth Current Use Patterns Client reported he is using meth daily Screening [place] Suicide Sev erity Rating Scale (LF) Do you want to [...] end your life?: No Interpretation:: Low Risk Assessment of Social Determinants of Health:: Has A PRAPARE Been Completed In The Past Year? Has a PRAPARE Been Completed In The Past Year?: Yes Was It Completed Today Using SmartForm?: Yes aT For Substance Use Services Who Is Your Primary Care Provider? Do You Have A Primary Care Provider?: No Date of last physical exam: Do You Have A Psychiatric Provider? Do You Have A Psychiatric Provider?: No Do You Have Any Other Profes sional Supports? Do You Have Any Other Professional Supports: No Consent Forms Completed Consent Forms: None Need ed at this time Examination Category Sub-Category Detail Notes Category Not es Mental Status Exam ATTENTION AND CONCENTRATION No defi cits APPEARANCE Disheveled ATTITUDE AND BEHAVIOR Cooperative EYE CONTACT Good AFFECT Congruent with repor chao mood MOOD Euthymic INSIGHT Poor JUDGMENT Fair
--- OUTSIDE RECORDS SUMMARY | 2025-04-30 04:00 | XMS_ITS ---
Author Organization [facility] Address [address] [place] [address] Care Team Providers Care Pattern Drum Maker Name Role Phone JoaoEstrellagraciela Primary Care Provider Allergies Allergen (clinical drug ingredient) Drug/Non Drug Allergy documented on EMR Reaction Allergy Type Onset Date Status bees (uncoded) hives Allergy Activ e wasp (uncoded) hives Allergy Activ e Results Component Value Reference Range Notes 14 Panel Urine Drug Screen Reviewed date:04/30/2025 09:40:43 AM Interpretation: Performing Lab: Notes/Report: THC neg JUANPABLO neg MOP (OPI) neg AMP neg MET neg BAR neg BZO neg MDMA neg MTD neg OXY neg PCP neg BUP neg TCA neg FTY neg REASON FOR VISIT MAT NewPT - Meth Medications Medication SIG (Take, Route, Frequency, Duration) Notes Start Date End Date Status Lantus 100 UNIT/ML 15 units Subcutaneou s every 12 hours 15 units every12 hours Active Vivitrol 380 MG as directed Intramuscular every 28 days; Duration: 28 days 04/30/2025 Active Multi Vitamin - 1 tablet Orally Once a day; Duration: 30 days 04/28/2025 Active Nicotine Polacrilex 4 MG 1 lozenge as needed for nicotine cravings Mouth/Throat Up to once per hour (maximum of 15 lozenges per day); Duration: 7 days 04/28/2025 Active HumaLOG KwikPen 200 UNIT/ML 10 units with every meal Subcutaneous 10 units with every meal Active Naltrexone HCl 50 MG 1/2 tablet Orally o nce; Duration: 1 days 04/30/2025 Active Nicotine 21 MG/24HR 1 patch to skin. Transdermal Once a day, removing at bedtime; Duration: 28 days 04/28/2025 Active Melatonin 5 MG 1 tablet at bedtime as needed Orally Once a day; Duration: 30 days 04/28/2025 Active hydrOXYzine Pamoate 25 MG 1-2 capsules Orally every 4 hours as needed for anxiety, agitation, or inability to sleep. Do not give within 4 hours of diphenhydramine.; Duration: 30 days 04/28/2025 Active Social History Tobacco Use: Social History Observation Description Date Details (start date - stop date) Current Smoker NA - NA Sex Assigned At : Social History Observation Description Sex Assigned At Male PRAPARE Question Answer Notes Date Completed/Updated: 04/28/2025 What is your current housing situation? I do not have housing (staying with others, in a hotel, in a fci, living outside on the street, on a [...] phone, visiting friends or family, going to cheondoism or club meetings) More than 5 times a week How stressed are you? Stress is when someone feels tense, nervous, anxious, or can\t sleep at night because their mind is troubled A little bit In the past year have you sp ent more than 2 nights in a row in a senior care, fci, retirement center, or juvenile correctional facility? No Are [...] Problem Status W/U Status Risk Notes Problem Stimulant abuse (904250694) Methamphetamine use disorder, mild, in early remission (F15.10) Active confirmed Problem Obesity (548926719) Obesity (BMI 30-39.9) (E66.9) Active confirmed Vital Signs Blood pressure systolic 128 mm Hg 04/30/20 25 Blood pressure diastolic 84 mm Hg 025 Heart Rate 83 /min 04/30/2025 Oximetry 97 % 04/30/2025 Temperature 98.0 degrees Fahrenheit 04/30/20 25 Respiratory Rate 18 /min 04/30/2025 Weight 306 lbs 04/30/2025 Height 74 in 04/30/2025 BMI 39.28 kg/m2 04/30/2025 Encounters Encounter Location Date Provider Diagnosis [place] [address] [place] [address] 04/30/2025 Rodriguez Shepherd Methamphetamine use disorder, mild, in early remission F15.10 and Obesity (BMI 30-39.9) E66.9 Assessments Encounter Date Diagnosis (ICD Code) Assessment Notes Treatment Notes Treatment Clinical Notes Section Notes 04/30/2025 Methamphetamine use disorder, mild, in early remission (ICD-10 - F15.10) Long-standing methamphetamine use reported for 20 years. Patient is seeking help and is open to medication-assiste d treatment. No prior history of naltrexone use. - Initiate naltrexone oral trial to assess for side effects. - If tolerated, administer Vivitrol injection monthly for craving management. 04/30/2025 Obesity (BMI 30-39.9) (ICD-10 - E66.9) 04/30/2025 Other 04/30/25 09:50 AM, Abram Zelaya RN > Per Jacquelyn Shepherd APRN's orders, supervised as pt. self-administered Naltrexone 25mg po. Instructed pt. on Naltrexone and Vivitrol per [employer] module handout. Instructed pt. on adverse side effects to report and common side effects. Gave pt. Vivitrol ID bracelet, necklace, and wallet card and explained what/why it is used. Pt. verbalized understanding of all of the above. Will monitor. 04/30/25 10:05 AM, Abram Zelaya RN > Pt. denies any adverse side effects from the Naltrexone at this time. Will continue to monitor. 04/30/25 10:20 AM, Abram Zelaya RN> Pt. continues to deny any adverse side effects to the Naltrexone at this time. Reported this to Jacquelyn Shepherd APRN. Per orders, davin to administer IM Vivitrol. 04/30/25 10:30 AM, Abram Zelaya RN> Administered Vivitrol 380mg IM into Lt. gluteus. Pt. tolerated well. No questions/concerns at this time. Pt. given a reminder with walk-in clinic hours, phone numbers, and when pt.'s next Vivitrol is due. Pt. verbalized understanding. 04/30/25 10:45, Abram Zelaya RN > Pt. denies any adverse side effects from Vivitrol injection given. Per Jacquelyn Shepherd APRN pt. discharged back to MRU. Plan Of Treatment Medication Medication Name Sig Start Date Stop Date Notes Vivitrol 380 MG as directed Intramus cular every 28 days; Duration: 28 days 04/30/2025 Naltrexone HCl 50 MG 1/2 tablet Orally o nce; Duration: 1 days 04/30/2025 Treatment Notes Assessment Notes Methamphetamine use disorder , mild, in early remission Long-standing methamphetamine use reported for 20 years. Patient is seeking help and is open to medication-assisted treatment. No prior history of naltrexone use. - Initiate naltrexone oral trial to assess for side effects. - If tolerated, administer Vivitrol injection monthly for craving management. Other 04/30/25 09:50 AM, Abram Zelaya RN > Per Jacquelyn Shepherd APRN's orders, supervised as pt. self-administered Naltrexone 25mg po. Instructed pt. on Naltrexone and Vivitrol per [employer] module handout. Instructed pt. on adverse side effects to report and common side effects. Gave pt. Vivitrol ID bracelet, necklace, and wallet card and explained what/why it is used. Pt. verbalized understanding of all of the above. Will monitor. 04/30/25 10:05 AM, Abram Zelaya RN > Pt. denies any adverse side effects from the Naltrexone at this time. Will continue to monitor. 04/30/25 10:20 AM, Abram Zelaya RN> Pt. continues to deny any adverse side effects to the Naltrexone at this time. Reported this to Jacquelyn Shepherd APRN. Per orders, okay to administer IM Vivitrol. 04/30/25 10:30 AM, Abram Zelaya RN> Administered Vivitrol 380mg IM into Lt. gluteus. Pt. tolerated well. No questions/concerns at this time. Pt. given a reminder with walk-in clinic hours, phone numbers, and when pt.'s next Vivitrol is due. Pt. verbalized understanding. 04/30/25 10:45, Abram Zelaya RN > Pt. denies any adverse side effects from Vivitrol injection given. Per Jacquelyn Shepherd APRN pt. discharged back to MRU. Next Appt Details Follow Up: 4 Weeks, Reason: MAR f/u Provider Name:Russell caraballo, 05/03/2025 11:00:00 AM, [address], [place], [address], Provider Name:Kristan Mireles, 1 02:40:00 PM, [address], [address], Medications Administered Medication Instructions Date of Administration Dosage Notes Vivitrol 04/30/2025 380 mg Lashawn Zelaya 04/30/2025 10:30 AM CDT >Given Lt Gluteus, tolerated well. [facility]# [id number]. Progress Notes * Bryce GARCIADOB:1985 ( 39 yo M)Acc No.[id number]:04/30/2025 Patient: Bryce GODWIN Provider: Nai Shepherd, MSN, INCOME AUDITOR, PUBLIC INFORMATION SPECIALIST-C :1985 A ge:39 Y S ex:Male Date:04/30/2025 Address:[place] [address] Check In:08:57 AM ICT TEACHER Subjective: * Chief Complaints: * M AT NewPT - Meth * HPI: I nterim History: Emergency room visit N o. Was hospitalized N o. D epression Screening: PHQ-9 L ittle interest or pleasure in doing things?Not at all F eeling down, depressed, or hopeless N ot at all T rouble falling or staying asleep, or sleeping too much N ot at all F eeling tired or having little energy N ot at all P oor appetite or overeating N ot at all F eeling bad about yourself or that you are a failure, or have let yourself or your family down N ot at all T rouble concentrating on things, such as reading the newspaper or watching television N ot at all M oving or speaking so slowly that other people could have noticed; or the opposite, being so fidgety or restless that you have been moving around a lot more than usual N ot at all T houghts that you would be better off or of hurting yourself in some way N ot at all T otal Score 0 Intervention D epression Screening Findings P ositive F ollow-Up for Depression P tk is admitted to a [facility] unit where their mental health is monitored - unit nursing staff have access to this encounter note S creening: [place] Suicide Severity Rating Scale (LF) D o you want to initiate with S creener form 1 . Wish to be : Have you wished you were or wished you could go to sleep and not wake up? N o 2 . Suicidal Thoughts: Have you actually had any thoughts of killing yourself? N o 6 . Suicide Behavior Question: Have you ever done anything,started to do anything, or prepared to end your life? N o I nterpretation: L ow Risk C SSRS Interpretation and Follow Up Plan: CSSRS Interpretation and Follow Up Plan C SSRS Screen documented using SF Y armand R isk Disposition from L ow - No Follow Up Plan Required F ollow Up Plan N o Follow Up Plan required at this time. T imeframe of Screening T samanta Reyes [facility] follow-up: . Cesar FUNES Initial Assessment: Bryce Garcia, a 39-year-old male, came in for an acute visit to address his methamphetamine use. He reported a 20-year history of methamphetamine use and last used 2 days prior to admission to the residential unit. He described ongoing fatigue, difficulty waking up in the morning, and sleeping during both day and night, which he believes are related to withdrawal. He denied any opiate use and expressed concern about managing these symptoms. Bryce plans to stay in the unit for 28 days if possible to support his recovery. Substance use history S ubstance Use History, drugs of choice: M ethamphetamines Addiction Treatment History P rior Medications for BECERRA treatment N one. First time seeking treatment. T herapy/counseling and Recovery support (peers/groups) N o history of therapy/counseling or engagement with recovery support peer/groups. Therapy/counseling and recovery support discussed and encouraged. Referrals placed. History of Infectious Diseases H istory of viral hepatitis N o H istory of HIV N o H istory of TB N o H istory of other infectious diseases N o History of IV drug use and related infections H istory of injection drug use? N o Acute Trauma A cute Trauma N o Psychiatric History H istory of psychiatric diagnoses? Y es (specify) H as a psychiatric provider? N o. Patient is interested in a psychiatric evaluation with [facility] provider. staff design engineer will coordinate appointment. Primary Care H as a primary care provider? N o I nterested in primary care services at this time? Y es. staff design engineer will coordinate appointment. Assessment and history specific to females F emale/Female at ? N o Hepatitis A and B vaccination status V accination status Hep A D enies vaccination to Hep A. Vaccination encouraged and resources offered. V accination status, Hep B D enies vaccination for Hep B. Encourage vaccination and offered resources. Housing Stability and Employment I s housing stable/safe? Y es C urrently employed? U nemployed. Support System: H as a support system: Y es (specify): Narcan Access H as Narcan and has been trained on its use??Yes. Prescription Drug Monitoring Program P rescription Drug Monitoring Program reviewed? Y es. No concerns identified. * ROS: B asic ROS: Denies W eight loss or gain. D enies S weats. D enies C onstipation. I nsomnia D enies. A dmits F atigue. D enies A nxiety. A dmits D epressed Mood. D enies S uicidal Thoughts. * Medical History: * Surgical History: D rob Past Surgical History * Hospitalization/Major Diagno stic Procedure: G ateway for high blood sugar 03/2025 * Family History: F ather: unknown. M other: alive. 1 sister(s) - healthy. . mother is in ICU septic from kidney failure. * Social History: P rimary Social History: L iving Arrangement L iving Arrangement: H omeless I s this a supportive environment? N o Alcohol Use A lcohol Use Frequency: N ever Illicit Substance Usage I llicit Substance Usage: Y es I nterested in quitting: Y es S ubstance Used: M ethamphetamine Last use 04/19/25 F requency Methamphetamine is used: d aily Employment Status E mployment Status: U nemployed Single Question Alcohol Screening H ow many times in the past year have you had (4 for women, or 5 for men) or more drinks in a day? 0 S ocial Determinants: P TAMRA Ley ate Completed/Updated: 1 W hat is your current housing situation? I do not have housing (staying with others, in a hotel, in a fci, living outside on the street, on a beach, or in a park) A re you worried about losing your housing??Yes W hat is the highest level of school that you have finished? H igh school diploma or GED W hat is your current work situation? U nemployed and seeking work I n the past year, have you or any family members you live with been unable to get any of the following when it was really needed? Check all that apply F ood,Clothing,Utilities H as lack of transportation kept you from medical appointments, meetings, work or from getting things needed for daily living? Y es, it has kept me from medical appointments or from getting my medications,Yes, it has kept me from non-medical meetings, appointments, work, or getting things needed for daily living H ow often do you see or talk to people that you care about and feel close to? (For example: talking to friends on the phone, visiting friends or family, going to cheondoism or club meetings) M ore than 5 times a week H ow stressed are you? Stress is when someone feels tense, nervous, anxious, or can\t sleep at night because their mind is troubled A little bit I n the past year have you spent more than 2 nights in a row in a senior care, fci, retirement center, or juvenile correctional facility? N o A re you a refugee? I choose not to answer this question W hat country are you from? I choose not to answer this question D o you feel physically and emotionally safe where you currently live? N o I n the past year, have you been afraid of your partner or ex-partner? N o P RAPARE Score: 1 3 E nabling Services Provided? Y es P lease specify C ase Management Assessment First Visit T obacco Use: T obacco Control (Standard) T obacco use: C urrent smoker H ow often do you smoke cigarettes? E very day H ow many cigarettes a day do you smoke? 2 1-30 M iscellaneous: M ethod of learning P referred method of learning: Tony castro,Discussion,Hearing * Medications: T akingNicotine Polacrilex 4 MG Lozenge 1 lozenge as needed for nicotine cravings Mouth/Throat Up to once per hour (maximum of 15 lozenges per day) Multi Vitamin - Tablet 1 tablet Orally Once a day Melatonin 5 MG Tablet 1 tablet at bedtime as needed Orally Once a day Nicotine 21 MG/24HR Patch 24 Hour 1 patch to skin. Transdermal Once a day, removing at bedtime hydrOXYzine Pamoate 25 MG Capsule 1-2 capsules Orally every 4 hours as needed for anxiety, agitation, or inability to sleep. Do not give within 4 hours of diphenhydramine. HumaLOG KwikPen 200 UNIT/ML Solution Pen- injector 10 units with every meal Subcutaneous , Notes to Pharmacist: 10 units with every mealLantus 100 UNIT/ML Solution 15 units Subcutaneous every 12 hours , Notes to Pharmacist: 15 units every12 hoursMedication List reviewed and reconciled with the patientTaking Nicotine Polacrilex 4 MG Lozenge 1 lozenge as needed for nicotine cravings Mouth/Throat Up to once per hour (maximum of 15 lozenges per day) Taking Multi Vitamin - Tablet 1 tablet Orally Once a day Taking Melatonin 5 MG Tablet 1 tablet at bedtime as needed Orally Once a day Taking Nicotine 21 MG/24HR Patch 24 Hour 1 patch to skin. Transdermal Once a day, removing at bedtime Taking hydrOXYzine Pamoate 25 MG Capsule 1-2 capsules Orally every 4 hours as needed for anxiety, agitation, or inability to sleep. Do not give within 4 hours of diphenhydramine. Taking HumaLOG KwikPen 200 UNIT/ML Solution Pen-injector 10 units with every meal Subcutaneous , Notes to Pharmacist: 10 units with every mealTaking Lantus 100 UNIT/ML Solution 15 units Subcutaneous every 12 hours , Notes to Pharmacist: 15 units every12 hoursMedication List reviewed and reconciled with the patient * Allergies: b ees: hiveswasp: hivesno[Allergies Verified] Objective: * Vitals: I nitials:KS, Wt:306, Ht:74, BMI:39.28, BP:128/84, HR:83, Oxygen sat %:97, Temp:98.0, RR:18, Pain scale:0. * Examination: A PILI Physical Assessment: Intoxication and Withdrawal signs I ntoxication signs N o signs of intoxication are present during examination. W ithdrawal Signs Y awning . G eneral Examination: GENERAL APPEARANCE: i n no acute distress. SKIN: w arm and dry. HEART: r egular rate and rhythm. LUNGS: r espirations regular and easy. PSYCH: a lert, oriented x4, speech clear, thought process logical, goal directed. Assessment: * Assessment: 1. O besity (BMI 30-39.9) - E66.9 2 . M ethamphetamine use disorder, mild, in early remission - F15.10 (Primary) Plan: * Treatment: 2. O thers Notes:04/30/25 09:50 AM, Abram Zelaya RN> Christopher. FACUNDO Shepherd'mayank orders, supervised as pt. self-administered Naltrexone 25mg po. Instructed pt. on Naltrexone and Vivitrol per [employer] module handout. Instructed pt. on adverse side effects to report and common side effects. Gave pt. Vivitrol ID bracelet, necklace, and wallet card and explained what/why it is used. Pt. verbalized understanding of all of the above. Will monitor. 04/30/25 10:05 AM, Abram Zelaya RN> Pt. denies any adverse side effects from the Naltrexone at this time. Will continue to monitor. 04/30/25 10:20 AM, Abram Zelaya RN> Pt. continues to deny any adverse side effects to the Naltrexone at this time. Reported this to Jacquelyn Shepherd APRN. Per orders, okay to administer IM Vivitrol. 04/30/25 10:30 AM, Abram Zelaya RN> Administered Vivitrol 380mg IM into Lt. gluteus. Pt. tolerated well. No questions/concerns at this time. Pt. given a reminder with walk-in clinic hours, phone numbers, and when pt.'s next Vivitrol is due. Pt. verbalized understanding. 04/30/25 10:45, Abram Zelaya RN> Pt. denies any adverse side effects from Vivitrol injection given. PerJ. Joao APRN pt. discharged back to MRU. * Recommended Wellness and Pre vention Guidelines: * S tatus A lert L ast Done N ext Due A ction Taken N ONCOMPLIANT H IV screening - 1 - - * Therapeutic Injections: Vivitrol : 380 mg (Dose No:1) (Route: Intramuscular) given by SUNDAR Aguirre on left gluteus (Methamphetamine use disorder, mild, in early remission) * Labs: * L ab: 14 Panel Urine Drug Screen (Collection Date & Time - 04/30/2025) Value Reference Range T HC neg * C OC neg * M OP (OPI) neg * A MP neg * M ET neg * B AR neg * B ZO neg * M DMA neg * M TD neg * O XY neg * P CP neg * B UP neg * T CA neg * F TY neg * Procedure Codes: 9 9000 SPECIMEN [id number] BODY MASS INDEX [id number] THER/PROPH/DIAG INJ, SC/IM * Preventive Medicine: Counseling: S MOKING: Patient counselled on the dangers of tobacco use and urged to quit. . C are goal follow-up plan: BMI management provided Y es Above Normal BMI Follow-up L ifestyle education regarding diet * Follow Up: 4 Weeks (Reason: SEP f/u) * * Sign off status: Completed true * Provider: Nai Shepherd, MSN, INCOME AUDITOR, PUBLIC INFORMATION SPECIALIST-C Date: Generated for Darren evans/Jaspreet/Aylinransmitting on: 5 02:11 PM CDT History and Physical Notes [...] all Feeling tired or having little energy: N ot at all Poor appetite or overeating: Not at all [...] some way: Not at all Total Score: 0 Intervention Depression Screening Findings: P ositive Follow-Up for Depression: Troy verdugo is admitted to a [facility] residential unit where their mental health is monitored - unit nursing staff have access to this encounter note Screening [place] Suicide Sev erity Rating Scale (LF) Do [...] end your life?: No Interpretation:: Low Risk MAR Initial Assessment History of Infect ious Diseases History of viral hepatitis: No History of HIV: No History of TB: No History of other infectious diseases: No Acute Trauma Acute Trauma: No History of IV drug use and r elated infections History of injection drug use?: No Psychiatric History History of psychiatr ic diagnoses?: Yes (specify) Has a psychiatric provider?: No. Patient is interested in a psychiatric evaluation with [facility] provider. staff design engineer will coordinate appointment. Substance use history Substance Use Hist ory, drugs of choice:: Methamphetamines Addiction Treatment History Prior Medica tions for [facility]RA treatment: None. First time seeking treatment. Therapy/counseling and Recov en support (peers/groups): No history of therapy/counseling or engagement with recovery support peer/groups. Therapy/counseling and recovery support discussed and encouraged. Referrals placed. Primary Care Has a primary care provider?: No Interested in primary care services at this time?: Yes. staff design engineer will coordinate appointment. Assessment and history speci fic to females Female/Female at ?: No Hepatitis A and B vaccination status Vac cination status Hep A: Denies vaccination to Hep A. Vaccination encouraged and resources offered. Vaccination status, Hep B: D enies vaccination for Hep B. Encourage vaccination and offered resources. Housing Stability and Employment Is housing stab le/safe?: Yes Currently employed?: Unemployed. Support System: Has a support system:: Yes (spec she): Narcan Access Has Narcan and has b een trained on its use?: Yes. Prescription Drug Monitoring Program Pre scription Drug Monitoring Program reviewed?: Yes. No concerns identified. Preventative Health and Wellness follow-up . CSSRS Interpretation and Follow Up Plan CSSRS Interpretation and Follow Up Plan CSSRS Screen documented using SF: Yes Risk Disposition from SF: Low - No Follo w Up Plan Required Follow Up Plan: No Follow Up Plan requir ed at this time. Timeframe of Screening: Today Examination Category Sub-Category Detail Notes Category Not es General Examination GENERAL APPEARANCE: in no acute di stress HEART: regular rate and rhy thm LUNGS: respirations regular and easy SKIN: warm and dry PSYCH: alert, oriented x4, speech clear, thought process logical, goal directed ASAM Physical Assessment Intoxication an d Withdrawal signs Intoxication signs: No signs of intoxication are present during examination. . Withdrawal Signs: Yawning
--- OUTSIDE RECORDS SUMMARY | 2025-04-30 14:11 | XMS_ITS | Patient Health Record ---
Author Organization [facility] Address [address] [place] [address] Care Team Providers Care Grinder Needle Tip Name Role Phone Rodriguez Shepherd Primary Care Provider Russell Dodson Unavailable [phone] Siomara Madsen Unavailable [phone] Allergies Allergen (clinical drug ingredient) Drug/Non Drug [...] neg BUP neg TCA neg FTY neg Breathalyzer Reviewed date:04/29/2025 07:57:42 AM Interpretation: Performing [...] 28 days; Duration: 28 days 04/30/2025 Active Naltrexone HCl 50 MG 1/2 tablet Orally o nce; Duration: 1 days 04/30/2025 Active Multi Vitamin - 1 tablet Orally Once a day; Duration: 30 days 04/28/2025 Active Nicotine Polacrilex 4 MG 1 lozenge as needed for nicotine cravings Mouth/Throat Up to once per hour (maximum of 15 lozenges per day); Duration: 7 days 04/28/2025 Active Nicotine 21 MG/24HR 1 patch to skin. Transdermal Once a day, removing at bedtime; Duration: 28 days 04/28/2025 Active Melatonin 5 MG 1 tablet at bedtime as needed Orally Once a day; Duration: days 04/28/2025 Active HumaLOG KwikPen 200 UNIT/ML [...] phone, visiting friends or family, going to anabaptism or club meetings) More than 5 times a week How stressed are you? Stress is when someone feels tense, nervous, anxious, or can\t sleep at night because their mind is troubled A little bit In the past year have you sp ent more than 2 nights in a row in a retirement, long-term, mcfp center, or juvenile correctional facility? 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) Active confirmed Vital Signs Heart Rate 83 /min 04/30/2025 Temperature 98.0 degrees Fahrenheit 04/30/2025 Respiratory Rate 18 /min 04/30/2025 Blood pressure diastolic 84 mm Hg 04/30/2025 Oximetry 97 % 04/30/2025 Height 74 in 04/30/2025 Blood pressure systolic 128 mm Hg 04/30/2025 Weight 306 lbs 04/30/2025 BMI 39.28 kg/m2 04/30/2025 Encounters Encounter Location Date Provider Diagnosis [place] [address] 04/28/2025 Siomara Madsen Over weight E66.3 ; Substance abuse F19.10 and Mental health problem F48.9 [facility] [place] [address] [address] 04/28/2025 Russell Dodson Adult general medica l examination Z00.00 ; Over weight E66.3 and Type 2 diabetes mellitus E11.9 [facility] [address] [place] [address] 04/30/2025 Rodriguez Shepherd Methamphetamine use disorder, mild, in early remission F15.10 and Obesity (BMI 30-39.9) E66.9 Assessments Encounter Date Diagnosis (ICD Code) Assessment Notes Treatment Notes Treatment Clinical Notes Section Notes 04/28/2025 Adult general medical examination (ICD-10 - Z00.00) Admit to the [facility] Residential [facility] and initiate standing/protocol orders: The [...] must be approved by nursing staff before self-administratio n by patients: Diphenhydramine 25 mg, 2 tablets [...] there is pus, a foul odor, increased pain/redness/swell ing, or if soaking through bandages. 04/28/2025 Over weight (ICD-10 - E66.3) 04/30/2025 Obesity (BMI 30-39.9) (ICD-10 - E66.9) 04/30/2025 Methamphetamine use disorder, mild, in early remission (ICD-10 - F15.10) Long-standing methamphetamine use reported for 20 years. Patient is seeking help and is open to medication-assiste d treatment. No prior history of naltrexone use. - Initiate naltrexone oral trial to assess for side effects. - If tolerated, administer Vivitrol injection monthly for craving management. 04/28/2025 Substance abuse (ICD-10 - F19.10) 04/28/2025 [...] the purposes of identifying additional service needs. 04/28/2025 Other Continue treatment as recommended by [facility] staff. Encouraged patient to obtain routine medical care with patient's own primary care provider or establish as a patient at [facility] if no current primary care provider. 04/30/2025 Other 04/30/25 09:50 AM, Abram Zelaya RN > Per Jacquelyn Shepherd APRN's orders, supervised as pt. self-administered Naltrexone 25mg po. Instructed pt. on Naltrexone and Vivitrol per [employer] module handout. Instructed pt. on adverse side [...] Jacquelyn Shepherd APRN pt. discharged back to [facility]. Plan Of Treatment Pending Test Test Name Order Date CBC With Differential/Platelet* 04/28/20 CMP 14 Comprehensive Metabolic Panel* QuantiFERON-TB Gold Plus ([id number]) 2024 Next Appt Details Provider Name:Russell caraballo, 05/03/2025 11:00:00 AM, [address], [place], [address], Provider Name:Kristan Mireles, 1 02:40:00 PM, [address] [place], [address], Insurance Providers Payer Name Payer Address Payer Phone Subscriber Number Group Number Insured Name Patient Relationship to Insured Coverage Start Date Coverage End Date [facility] Att Claims Department [address] [place] [address] [phone] [id number] Bryce Mayen Self - patient is the insured 5 Medications Administered Medication Instructions Date of Administration Dosage Notes Vivitrol 04/30/2025 380 mg Lashawn Zelaya 04/30/2025 10:30 AM CDT >Given Lt Gluteus, tolerated well. [facility]# [id number]. Medical (General) History Medical History History ICD Code diabetic epilepsy Hospitalization History Reason Date(Month/Year) [place] for high blood sugar 03/2025
[2025-04-30 14:12] VITALS: BP 129/91; PULSE 88; RESP 18; TEMP 36.6; O2SAT 98
== END 2025-04-30 14:12 | disposition left against medical advice (07) ==
DX: M54.50 Low back pain, unspecified (principal)
CPT/HCPCS: 99199